=== PATIENT | male | born 1965 | race Caucasian/White ===

== ENCOUNTER 2018-01-05 21:42 | Emergency (ER) | payer OTHER, BC ==
[~2018-01-05] VITALS: Ht 182.9 cm; Wt 95.3 kg
[~2018-01-05 21:42] MED LIST: ASPI-667 PO; ATOR40TA PO; CLOP75TA52 PO; METO25TA2 PO
[2018-01-05 22:14] VITALS: BP 144/87
--- NOTE | 2018-01-05 22:15 | NUR ---
BLANKETS: WARM BLANKET OFFERED AND REFUSED
[2018-01-05] MEDS: BOOSTRIX VACCINE SYRINGE IM ONE (22:33)
[2018-01-05] MEDS ORDERED: NORCO 7.5MG PO ONE (22:34)
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
[2018-01-05] MEDS: NORCO 5MG PO STA ×2 (22:39→23:52)
[2018-01-05] MEDS ORDERED: NORCO 5MG PO ONE (23:45)
[2018-01-06 00:02] VITALS: BP 144/87
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
== END 2018-01-05 23:58 | disposition home or self-care (01) ==
LOC: ER 21:42
DX: S50.311A Abrasion of right elbow, initial encounter (principal); M25.511 Pain in right shoulder; M54.2 Cervicalgia; I10 Essential (primary) hypertension; I25.10 Atherosclerotic heart disease of native coronary artery without angina pectoris; Z79.82 Long term (current) use of aspirin; Z79.899 Other long term (current) drug therapy; V43.62XA Car passenger injured in collision with other type car in traffic accident, initial encounter; Y93.89 Activity, other specified; Y92.410 Unspecified street and highway as the place of occurrence of the external cause; Y99.8 Other external cause status
CPT/HCPCS: 72040; 90471; 90714; 99285; 73030-RT; 73070-RT

== ENCOUNTER → 2021-10-15 | Outpatient (CLI) | payer BC ==
[2021-10-15 17:05] LABS: MEAN CORP HGB 30.2 pg (26-34); RED CELL DISTRIBUTION WIDTH 14.1 % (11.5-14.5)
[2021-10-15 17:14] LABS: CARBON DIOXIDE 27.2 mmol/L (20.0-32)
== END | disposition home or self-care (01) ==
LOC: LAB 16:34
PROVIDERS: ATTEND Physician Assistant Medical
DX: Z01.812 Encounter for preprocedural laboratory examination (principal); I25.10 Atherosclerotic heart disease of native coronary artery without angina pectoris
CPT/HCPCS: 36415; 80048; 85027; 85610

== ENCOUNTER → 2022-07-23 | Outpatient (CLI) | payer BC ==
[~2022-07-23] MED LIST changes: +CLOP-28 PO; -CLOP75TA52 PO
--- NOTE | 2022-07-23 15:48 | DIREP ---
PROCEDURE:XR BARIUM SWALLOW - MODIFIED COMPARISON:None. INDICATIONS: Vomiting SECONDARY INDICATION: Dysphagia TECHNIQUE:A comprehensive fluoroscopic examination of swallowing was performed, utilizing a variety of barium consistencies. FINDINGS: ORAL PHASE:Normal. PHARYNGEAL PHASE:Normal. ASPIRATION:None. OTHER:Limited single-contrast esophagram was also performed demonstrating smooth mucosa with multiple coarse esophageal contractions. There is irregular contour of the distal esophagus that is transient typical for esophageal spasm having a somewhat corkscrew appearance. The patient was asymptomatic during the examination. Barium tablet was administered and was significantly delayed in the distal esophagus, just above the gastroesophageal junction. The GE junction was inadequately evaluated distended. Question GE junction stricture. A barium tablet passed into the stomach after 5 minutes. FLUORO TIME: 3 minutes NUMBER OF IMAGES: 10 CONCLUSION: 1. No evidence for aspiration. 2. Limited single-contrast esophagram demonstrates esophageal spasm and dysmotility. 3. Barium tablet was delayed at the gastroesophageal junction. The possibility of the GE junction stricture or functional narrowing cannot be excluded. Consider correlation with upper endoscopy Dictated by: Chris Hand MD on 07/23/2022 at 03:42 PM
== END | disposition home or self-care (01) ==
LOC: RAD 12:35
PROVIDERS: ATTEND Internal Medicine
DX: R13.10 Dysphagia, unspecified (principal)
CPT/HCPCS: 74230; 92611